=== PATIENT | male | born 1955 | race Caucasian/White ===

== ENCOUNTER 2016-11-22 20:00 | Observation (INO) | payer OTHER ==
[2016-11-22 20:30] LABS: COLOR YELLOW; LEUKOCYTE ESTERASE,URINE NEGATIVE (NEGATIVE); NITRITE,URINE NEGATIVE (NEGATIVE)
[2016-11-22] MEDS ORDERED: HYDROmorphONE/DILAUDID 1 MG/ML SYR IVP ONE ×2 (20:40→22:44)
[2016-11-22] MEDS ORDERED: NS 1,000 ML IV ONE (20:40)
[2016-11-22] MEDS ORDERED: ONDANSETRON 4 MG/2 ML VIAL IVP ONE (20:40)
[2016-11-22] MEDS ORDERED: KETOROLAC 30 MG/1 ML SDV IVP ONE (20:40)
[2016-11-22 20:44] LABS: BACTERIA TRACE /hpf (NONE SEEN); GRANULAR CASTS 0-1 /lpf (0-1); HYALINE CASTS 0-1 /lpf (0-1); MUCUS 2+ /lpf (NONE-1+); RBC,URINE 50-182 /hpf (0-3); WBC,URINE 0-1 /hpf (0-3)
--- NOTE | 2016-11-22 20:44 | EDPHY ---
H & P Stated Complaint: Pt. states constant left flank pain this afternoon, now with nausea Time Seen by Provider: 11/22/16 20:38 - Medical/Surgical History Hx Asthma: No Hx Chronic Respiratory Disease: No Hx Diabetes: No Hx Cardiac Disease: No Hx Renal Disease: No Hx Cirrhosis: No Hx Alcoholism: No Hx HIV/AIDS: No Hx Splenectomy or Spleen Trauma: No Other PMH: cholesterol. Rheumatoid Arthritis. Surg-appy - Social History Smoking Status: Heavy smoker Constitutional: Initial Vital Signs Temperature (C) 36.5 C 11/22/16 20:10 Heart Rate 72 11/22/16 20:10 Respiratory Rate 16 11/22/16 20:10 Blood Pressure 139/83 H 11/22/16 20:10 O2 Sat (%) 95 11/22/16 20:10 O2 Delivery Mode Nasal Cannula O2 (L/minute) 2 Allergies/Adverse Reactions: No Known Allergies Allergy (Verified 11/22/16 20:16) Home Medications: Medication Instructions Recorded Methotrexate 05/29/13 Atorvastatin Calcium 11/22/16 Cialis 11/22/16 Tamsulosin HCl [Flomax 0.4 MG (*)] 0.4 mg PO DAILY #10 cap 11/22/16 oxyCODONE IR [Oxycodone Ir (*)] 5 - 10 mg PO Q6 PRN #20 tab 11/22/16 Medical Decision Making - Diagnostics Imaging Results: Imaging Impressions Abdomen/Pelvis CT 11/22/16 20:41 Impression: 1. Moderate left hydronephrosis with significant perinephric fluid and dilated renal collecting systems secondary to left ureterolithiasis with a 5 x 6 mm obstructing calculus in the proximal left ureter. 2. Several additional calyceal calculi in the left kidney. Nonobstructing calyceal calculi in the right kidney. No right hydronephrosis. 3. Sigmoid diverticulosis without diverticulitis. 4. L4-L5 moderate central canal stenosis secondary to degenerative grade 1 retrolisthesis and central disk herniation. Attention: This CT examination is specifically designed to evaluate patients who are clinically suspected of having acute obstructive uropathy. This examination does not use radiographic contrast, and as such, provides only a limited evaluation of the abdomen, pelvis, and retroperitoneum. If there is further clinical suspicion for pathological conditions other than obstructive uropathy, a complete CT evaluation of the abdomen and pelvis utilizing intravenous, oral, and rectal contrast should be considered. Findings and recommendations discussed with emergency department physician, Erich Montero MD at 2127 hours on November 22, 2016. Final report concurs with initial preliminary interpretation. Imaging: Discussed imaging studies w/ call center rn Radiologist ED Course/Re-evaluation: CHIEF COMPLAINT: Left flank pain HISTORY OF PRESENT ILLNESS: 61-year-old gentleman with rheumatoid arthritis who presents with several hours of worsening left flank pain. He is nauseated without vomiting. He denies fevers or chills. He denies any urinary difficulties. He states he has never had any symptoms like this in the past. He denies any radiation of the pain around to his abdomen or to his groin at this time. He denies any mechanical type injury to his back. REVIEW OF SYSTEMS: A 10 point review of systems was performed and is negative with the exception of the elements mentioned in the history of present illness. PHYSICAL EXAM: HR, BP, O2 Sat, RR. Temp noted General Appearance: Alert, well hydrated, appropriate, and non-toxic appearing. Head: Atraumatic without scalp tenderness or obvious injury Eyes: Pupils equal, round, reactive to light and accommodation, EOMI, no trauma , no injection. Ears: Clear bilaterally, no perforation, normal landmarks Nose: Atraumatic, no rhinorrhea, clear. Throat: There is no erythema or exudates, no lesions, normal tonsils, mucus membranes moist. Neck: Supple, 2+ carotid upstroke, nontender, no lymphadenopathy. Respiratory: No retractions, no distress, no wheezes, and no accessory muscle use. Lungs are clear to auscultation bilaterally. Cardiovascular: Regular rate and rhythm, no murmurs, rubs, or gallops. Bilateral carotid, radial, dorsalis pedis, and posterior tibial pulses intact. Good capillary refill all extremities. Gastrointestinal: He has pain in the left CVA but I cannot elicit any worse pain by palpation. Abdomen is soft, nontender, non-distended, no masses, no rebound, no guarding, no peritoneal signs. Musculoskeletal: Normal active ROM of all extremities, atraumatic. Neurological: Alert, appropriate, and interactive. The patient has normal DTRs and non-focal cranial nerves, motor, sensory, and cerebellar exam. Skin: No rashes, good turgor, no nodules on palpation. Past medical history: Rheumatoid arthritis Past surgical history: Noncontributory Family history: Noncontributory Social history: , uses tobacco, does not abuse alcohol or drugs, employed DIAGNOSTICS/PROCEDURES/CRITICAL CARE TIME: Study: CT of the abdomen and pelvis without intravenous contrast Indication: Possible kidney stone Results: CT scan of the abdomen and pelvis was obtained. The results of the study are 5-6 mm proximal left kidney stone with significant hydroureter and hydronephrosis with some urine extravasation. The study was read by the radiologist, Dr. Goel. I viewed the images myself on the PACS system. DIFFERENTIAL DIAGNOSIS: The differential diagnosis for the patient's flank pain included but was not limited to musculoskeletal causes, kidney stone, pyelonephritis, shingles, diverticulitis, appendicitis, and aortic aneurysm. MEDICAL DECISION MAKING: This patient is nauseated and having significant pain. We established IV access. Urinalysis shows positive blood but no infection. 1 mg of Dilaudid, 30 mg of Toradol, 4 mg of Zofran intravenous fluids have been given. I will consider Flomax once I established a definitive diagnosis. CT is pending. 21:[address] Goel. CT shows 5-6 mm proximal left kidney stone with significant hydroureter and hydronephrosis with some urine extravasation. Plan to manage pain and reassess following medication administration. The patient has non-infected kidney stones. We offered the patient admission, but he and his state he would prefer to be discharged home rather than admitted at this point. His pain is currently managed well. He will be discharged with prescriptions for Flomax and Oxycodone IR, instructions to follow up with Dr. Montenegro, and has been given strict return precautions. He will return if the pain is uncontrollable or if he has any nausea, vomiting, fever, or chills. 10:42 p.m.: Just before discharge this patient had a significant increase in his flank pain. He now feels like the pain is moving down a little bit further toward his left abdomen and groin. He does not feel like he can control the pain at home. I have once again offered him admission and we will admit him to the [facility] facility to the hospitalist for pain control and consultation by Urology. I would prefer to transfer this patient by ambulance however, they refused to be transferred by ambulance because on a prior transfer they were stuck with a large ambulance pillow over 1200 dollars. The will drive him in private vehicle over the [facility]. - Data Points Laboratory Results: Laboratory Results 11/22/16 20:50 11/22/16 20:50 11/22/16 11/22/16 11/22/16 20:50 20:50 20:20 WBC 17.71 10^3/uL H 10^3/uL (3.80-9.50) RBC 4.45 10^6/uL 10^6/uL (4.40-6.38) Hgb 14.7 g/dL g/dL (13.7-17.5) Hct 41.7 % % (40.0-51.0) MCV 93.7 fL fL (81.5-99.8) MCH 33.0 pg pg (27.9-34.1) MCHC 35.3 g/dL g/dL (32.4-36.7) RDW 13.8 % % (11.5-15.2) Plt Count 303 10^3/uL 10^3/uL (150-400) MPV 10.3 fL fL (8.7-11.7) Neut % (Auto) Not Reported Lymph % (Auto) Not Reported [place] % (Auto) Not Reported Eos % (Auto) Not Reported Baso % (Auto) Not Reported Nucleat RBC Rel Count 0.0 % % (0.0-0.2) Absolute Neuts (auto) Not Reported Absolute Lymphs (auto) Not Reported Absolute Monos (auto) Not Reported Absolute Eos (auto) Not Reported Absolute Basos (auto) Not Reported Absolute Nucleated RBC 0.00 10^3/uL 10^3/uL (0-0.01) Immature Gran % Not Reported Seg Neutrophils % 80 % % Band Neutrophils % 4 % % Lymphocytes % 9 % % Monocytes % 6 % % Eosinophils % 1 % % Immature Gran # Not Reported Absolute Seg Neuts 14.2 K/MM3 H K/MM3 (1.8-7) Absolute Band Neuts 0.7 K/MM3 K/MM3 (0-0.7) Absolute Lymphocytes 1.6 K/mm3 K/mm3 (1.0-4.8) Absolute Monocytes 1.1 K/mm3 H K/mm3 (0-0.8) Absolute Eosinophils 0.2 K/mm3 K/mm3 (0-0.5) RBC/WBC/PLT Morphology NORMAL (NORMAL) Atypical Lymphocytes 1+ H Toxic Vacuolation PRESENT H Platelet Estimate ADEQUATE (ADEQ) Large Platelets PRESENT H Sodium 142 mEq/L mEq/L (134-144) Potassium 4.1 mEq/L mEq/L (3.5-5.2) Chloride 102 mEq/L mEq/L (97-110) Carbon Dioxide 26 mEq/l mEq/l (22-31) Anion Gap 14 mEq/L mEq/L (8-16) BUN 17 mg/dL mg/dL (7-23) Creatinine 1.3 mg/dL mg/dL (0.7-1.3) Estimated GFR 56 Glucose 93 mg/dL mg/dL (70-100) Calcium 9.6 mg/dL mg/dL (8.5-10.4) Total Bilirubin 1.0 mg/dL mg/dL (0.1-1.4) Conjugated Bilirubin 0.3 mg/dL mg/dL (0.0-0.5) Unconjugated Bilirubin 0.7 mg/dL mg/dL (0.0-1.1) AST 21 IU/L IU/L (17-59) ALT 33 IU/L IU/L (21-72) Alkaline Phosphatase 90 IU/L IU/L (38-126) Total Protein 6.9 g/dL g/dL (6.3-8.2) Albumin 3.6 g/dL g/dL (3.5-5.0) Lipase 197.0 IU/L IU/L (23-300) Urine Color YELLOW Urine Appearance HAZY Urine pH 7.0 (5.0-7.5) Ur Specific [place] 1.015 (1.002-1.030) Urine Protein NEGATIVE (NEGATIVE) Urine Ketones NEGATIVE (NEGATIVE) Urine Blood 3+ H (NEGATIVE) Urine Nitrate NEGATIVE (NEGATIVE) Urine Bilirubin NEGATIVE (NEGATIVE) Urine Urobilinogen 0.2 EU EU (0.2-1.0) Ur Leukocyte Esterase NEGATIVE (NEGATIVE) Urine RBC 50-182 /hpf H /hpf (0-3) Urine WBC 0-1 /hpf /hpf (0-3) Ur Epithelial Cells 1+ /lpf /lpf (NONE-1+) Urine Bacteria TRACE /hpf H /hpf (NONE SEEN) Hyaline Casts 0-1 /lpf /lpf (0-1) Granular Casts 0-1 /lpf /lpf (0-1) Urine Mucus 2+ /lpf H /lpf (NONE-1+) Urine Glucose NEGATIVE (NEGATIVE) Medications Given: Discontinued Medications Hydromorphone HCl (Dilaudid) 1 mg IVP EDNOW ONE Stop: 11/22/16 20:41 Last Admin: 11/22/16 21:11 Dose: 1 mg Sodium Chloride (Ns) 1,000 mls @ 0 mls/hr IV ONCE ONE PRN Reason: Wide Open Stop: 11/22/16 20:41 Last Admin: 11/22/16 21:03 Dose: 1,000 mls Ketorolac Tromethamine (Toradol) 30 mg IVP EDNOW ONE Stop: 11/22/16 20:41 Last Admin: 11/22/16 21:10 Dose: 30 mg Ondansetron HCl (Zofran) 4 mg IVP EDNOW ONE Stop: 11/22/16 20:41 Last Admin: 11/22/16 21:05 Dose: 4 mg Tamsulosin HCl (Flomax) 0.4 mg PO EDNOW ONE Stop: 11/22/16 21:21 Last Admin: 11/22/16 21:30 Dose: 0.4 mg Departure - Departure Disposition: [facility] Inpatient Acute Clinical Impression: Kidney stone Condition: Fair Instructions: Kidney Stones (ED) Additional Instructions: 1. Take Flomax as prescribed. 2. Take Oxycodone IR as prescribed for pain. 3. Follow up with Dr. Montenegro for continued management of your kidney stones. Call Thursday for an appointment. 4. Return to the ED for pain uncontrolled by your medications, nausea, vomiting , fever, chills, or other worsening of condition. Referrals: Fareed Giang DO [Primary Care Provider] - As per Instructions Alan Montenegro MD [Medical Doctor] - As per Instructions Prescriptions: oxyCODONE IR [Oxycodone Ir (*)] 5 - 10 mg PO Q6 PRN #20 tab PRN Reason: Pain, Severe Tamsulosin HCl [Flomax 0.4 MG (*)] 0.4 mg PO DAILY #10 cap
[2016-11-22 20:58] LABS: ADD DIFF? YES; ADD MORPH? NO; ADD SCAN? NO; ATYPICAL LYMPHOCYTE FLAG 10 (0-99); FRAGMENT RBC FLAG 0 (0-99); HEMATOCRIT 41.7 % (40.0-51.0); HEMOGLOBIN 14.7 g/dL (13.7-17.5); LEFT SHIFT FLG 10 (0-99); LIPEMIA HEMOLYSIS FLAG 90 (0-99); MEAN CELL HEMOGLOBIN CONCENTR. 35.3 g/dL (32.4-36.7); MEAN CELL VOLUME 93.7 fL (81.5-99.8); MEAN PLATELET VOLUME 10.3 fL (8.7-11.7); PLATELET CLUMPS FLAG 0 (0-99); PLATELET COUNT 303 10^3/uL (150-400); RED BLOOD CELL COUNT 4.45 10^6/uL (4.40-6.38); RED CELL DISTRIBUTION WIDTH 13.8 % (11.5-15.2)
[2016-11-22 21:10] LABS: ALBUMIN 3.6 g/dL (3.5-5.0); BILIRUBIN-CONJUGATED 0.3 mg/dL (0.0-0.5); BILIRUBIN-UNCONJUGATED 0.7 mg/dL (0.0-1.1); CALCIUM 9.6 mg/dL (8.5-10.4); CREATININE 1.3 mg/dL (0.7-1.3); POTASSIUM 4.1 mEq/L (3.5-5.2); TOTAL PROTEIN 6.9 g/dL (6.3-8.2)
[2016-11-22] MEDS ORDERED: TAMSULOSIN HCL 0.4 MG CAP PO ONE (21:20)
[2016-11-22 21:25] LABS: LARGE PLATELETS PRESENT; PLATELET ESTIMATE ADEQUATE (ADEQ); TOXIC VACUOLIZATION PRESENT
[2016-11-22] MEDS ORDERED: OXYCODONE/APAP 5/325MG PREPACK#4 BTL TAKEHOME ONE (22:05)
[2016-11-23] MEDS ORDERED: ACETAMINOPHEN 500 MG TAB PO PRN (00:32)
[2016-11-23] MEDS ORDERED: ONDANSETRON DISINTEGRATING 4 MG TAB PO PRN (00:32)
[2016-11-23] MEDS ORDERED: ONDANSETRON 4 MG/2 ML VIAL IVP PRN (00:32)
[2016-11-23] MEDS ORDERED: HYDROmorphONE/DILAUDID 1 MG/ML SYR IVP PRN (00:32)
[2016-11-23] MEDS: NS 1,000 ML IV SCH ×2 (00:40→09:48)
[2016-11-23] MEDS ORDERED: ALBUTEROL 3 ML DEYVIAL IH PRN (03:51)
--- NOTE | 2016-11-23 03:55 | PDGENHP ---
History and Physical - Chief Complaint L flank pain - History of Present Illness Patient is a 61-year-old male with a history of rheumatoid arthritis, active tobacco use presents to the ED with complaint of left flank pain. Patient states symptoms started suddenly this afternoon with a dull achy pain in his left mid back radiating to his flank. Over the following hours, pain intensified became associated with nausea and lack of appetite. By dinnertime he was significantly uncomfortable, so the his brought him to the urgent care for further evaluation. He denies any route associated fevers, chills, vomiting, dysuria, hematuria. He has never experienced this type of pain before. He does follow with a urologist for BPH, which has been well controlled recently. On arrival to the [facility], patient was afebrile hemodynamically stable. Labs revealed leukocytosis, normal BMP. UA showed micro hematuria without evidence of infection. CT of the abdomen and pelvis revealed 5x6mm L ureter stone with moderate associated hydronephrosis. He was given symptom control in the [facility] and was preparing for DC home, however, pain recurred and intensified, so he was transferred to [facility] for admission. History Information - Allergies/Home Medication List Allergies/Adverse Reactions: No Known Allergies Allergy (Verified 11/22/16 20:16) Home Medications: Methotrexate 05/29/13 [Last Taken Unknown] Atorvastatin Calcium 11/22/16 [Last Taken Unknown] Cialis 11/22/16 [Last Taken Unknown] I have personally reviewed and updated: family history, medical history, social history, surgical history - Past Medical History Additional medical history: Rheumatoid arthritis, well controlled on MTX. 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 Review of Systems ROS: 10pt was reviewed & negative except for what was stated in HPI & below Physical Exam Temp Pulse Resp BP Pulse Ox 37.2 C 85 16 138/72 H 92 11/23/16 00:21 11/23/16 00:21 11/23/16 00:21 11/23/16 00:21 11/23/16 00:21 O2 (L/minute) 1 Constitutional: no apparent distress, appears nourished, not in pain Eyes: PERRL, anicteric sclera, EOMI Ears, Nose, Mouth, Throat: moist mucous membranes, hearing normal, ears appear normal, no oral mucosal ulcers Cardiovascular: regular rate and rhythym, no murmur, rub, or gallop, pulses symmetric bilaterally, No JVD, No edema Peripheral Pulses: 2+: dorsalis-pedis (R), dorsalis-pedis (L) Respiratory: no respiratory distress, no rales or rhonchi, clear to auscultation Gastrointestinal: normoactive bowel sounds, soft, non-tender abdomen, no palpable masses Genitourinary: no bladder fullness, no bladder tenderness, other (no CVA tenderness) Skin: warm, normal color, no rashes or abrasions, no fluctuance, no induration, No mottled Musculoskeletal: full muscle strength, no muscle tenderness, normal joint ROM, no joint effusions Neurologic: AAOx3, sensation intact bilaterally, CN II-XII Intact, No weakness, No numbness Psychiatric: interacting appropriately, not anxious, not encephalopathic, thought process linear Lab Data & Imaging Review 11/22/16 20:50 11/22/16 20:50 WBC 17.71 10^3/uL (3.80-9.50) H 11/22/16 20:50 RBC 4.45 10^6/uL (4.40-6.38) 11/22/16 20:50 Hgb 14.7 g/dL (13.7-17.5) 11/22/16 20:50 Hct 41.7 % (40.0-51.0) 11/22/16 20:50 MCV 93.7 fL (81.5-99.8) 11/22/16 20:50 MCH 33.0 pg (27.9-34.1) 11/22/16 20:50 MCHC 35.3 g/dL (32.4-36.7) 11/22/16 20:50 RDW 13.8 % (11.5-15.2) 11/22/16 20:50 Plt Count 303 10^3/uL (150-400) 11/22/16 20:50 MPV 10.3 fL (8.7-11.7) 11/22/16 20:50 Neut % (Auto) Not Reported 11/22/16 20:50 Lymph % (Auto) Not Reported 11/22/16 20:50 [place] % (Auto) Not Reported 11/22/16 20:50 Eos % (Auto) Not Reported 11/22/16 20:50 Baso % (Auto) Not Reported 11/22/16 20:50 Nucleat RBC Rel Count 0.0 % (0.0-0.2) 11/22/16 20:50 Absolute Neuts (auto) Not Reported 11/22/16 20:50 Absolute Lymphs (auto) Not Reported 11/22/16 20:50 Absolute Monos (auto) Not Reported 11/22/16 20:50 Absolute Eos (auto) Not Reported 11/22/16 20:50 Absolute Basos (auto) Not Reported 11/22/16 20:50 Absolute Nucleated RBC 0.00 10^3/uL (0-0.01) 11/22/16 20:50 Immature Gran % Not Reported 11/22/16 20:50 Seg Neutrophils % 80 % 11/22/16 20:50 Band Neutrophils % 4 % 11/22/16 20:50 Lymphocytes % 9 % 11/22/16 20:50 Monocytes % 6 % 11/22/16 20:50 Eosinophils % 1 % 11/22/16 20:50 Immature Gran # Not Reported 11/22/16 20:50 Absolute Seg Neuts 14.2 K/MM3 (1.8-7) H 11/22/16 20:50 Absolute Band Neuts 0.7 K/MM3 (0-0.7) 11/22/16 20:50 Absolute Lymphocytes 1.6 K/mm3 (1.0-4.8) 11/22/16 20:50 Absolute Monocytes 1.1 K/mm3 (0-0.8) H 11/22/16 20:50 Absolute Eosinophils 0.2 K/mm3 (0-0.5) 11/22/16 20:50 RBC/WBC/PLT Morphology NORMAL (NORMAL) 11/22/16 20:50 Atypical Lymphocytes 1+ H 11/22/16 20:50 Toxic Vacuolation PRESENT H 11/22/16 20:50 Platelet Estimate ADEQUATE (ADEQ) 11/22/16 20:50 Large Platelets PRESENT H 11/22/16 20:50 Sodium 142 mEq/L (134-144) 11/22/16 20:50 Potassium 4.1 mEq/L (3.5-5.2) 11/22/16 20:50 Chloride 102 mEq/L (97-110) 11/22/16 20:50 Carbon Dioxide 26 mEq/l (22-31) 11/22/16 20:50 Anion Gap 14 mEq/L (8-16) 11/22/16 20:50 BUN 17 mg/dL (7-23) 11/22/16 20:50 Creatinine 1.3 mg/dL (0.7-1.3) 11/22/16 20:50 Estimated GFR 56 11/22/16 20:50 Glucose 93 mg/dL (70-100) 11/22/16 20:50 Calcium 9.6 mg/dL (8.5-10.4) 11/22/16 20:50 Total Bilirubin 1.0 mg/dL (0.1-1.4) 11/22/16 20:50 Conjugated Bilirubin 0.3 mg/dL (0.0-0.5) 11/22/16 20:50 Unconjugated Bilirubin 0.7 mg/dL (0.0-1.1) 11/22/16 20:50 AST 21 IU/L (17-59) 11/22/16 20:50 ALT 33 IU/L (21-72) 11/22/16 20:50 Alkaline Phosphatase 90 IU/L (38-126) 11/22/16 20:50 Total Protein 6.9 g/dL (6.3-8.2) 11/22/16 20:50 Albumin 3.6 g/dL (3.5-5.0) 11/22/16 20:50 Lipase 197.0 IU/L (23-300) 11/22/16 20:50 Urine Color YELLOW 11/22/16 20:20 Urine Appearance HAZY 11/22/16 20:20 Urine pH 7.0 (5.0-7.5) 11/22/16 20:20 Ur Specific [place] 1.015 (1.002-1.030) 11/22/16 20:20 Urine Protein NEGATIVE (NEGATIVE) 11/22/16 20:20 Urine Ketones NEGATIVE (NEGATIVE) 11/22/16 20:20 Urine Blood 3+ (NEGATIVE) H 11/22/16 20:20 Urine Nitrate NEGATIVE (NEGATIVE) 11/22/16 20:20 Urine Bilirubin NEGATIVE (NEGATIVE) 11/22/16 20:20 Urine Urobilinogen 0.2 EU (0.2-1.0) 11/22/16 20:20 Ur Leukocyte Esterase NEGATIVE (NEGATIVE) 11/22/16 20:20 Urine RBC 50-182 /hpf (0-3) H 11/22/16 20:20 Urine WBC 0-1 /hpf (0-3) 11/22/16 20:20 Ur Epithelial Cells 1+ /lpf (NONE-1+) 11/22/16 20:20 Urine Bacteria TRACE /hpf (NONE SEEN) H 11/22/16 20:20 Hyaline Casts 0-1 /lpf (0-1) 11/22/16 20:20 Granular Casts 0-1 /lpf (0-1) 11/22/16 20:20 Urine Mucus 2+ /lpf (NONE-1+) H 11/22/16 20:20 Urine Glucose NEGATIVE (NEGATIVE) 11/22/16 20:20 Visualized and Interpreted imaging results: Yes Interpretation: CT abd/pelvis: L ureter stone 5 x 6 mm with moderate L hydronephrosis Assessment & Plan Assessment: Patient is a 61 year old male with well controlled RA on MTX, active tobacco use who presented to the [facility] with L flank pain since the afternoon. [facility] evaluation reveals ureterolithiasis of the L ureter with moderate associated obstructive hydronephrosis. No evidence of concurrent pyelonephritis. Plan: # L ureterolithiasis L flank pain likely related to L ureter stone of 6x[address] does show evidence of moderate hydronephrosis due to obstruction, however, there is no evidence of associated infection. Will continue aggressive IVF hydration, pain control as needed and flomax. Will also contact Urology. # leukocytosis Suspect this is reactive, as there is no obvious source of infection at this time (UA without LE, nitrites or wbcs). Will follow, if evidence of urinary infection develops will culture and initiate antibiotics. At this time, patient does not meet SIRS/sepsis criteria. # active tobacco use Advised patient of benefits of smoking cessation and offered nicotine replacement while inpatient. # RA Stable, resume home meds. # BPH Continue home tadalafil and also initiate tamsulosin. # dispo: admit to observation status # gen: regular diet DVT ppx: low risk Full code
[2016-11-23 05:12] LABS: % IMMATURE GRANULYOCYTES 0.6 % (0.0-1.1); ABSOLUTE IMMATURE GRANULOCYTES 0.11 10^3/uL (0.00-0.10); ADD DIFF? NO; ADD MORPH? NO; ADD SCAN? NO; ATYPICAL LYMPHOCYTE FLAG 10 (0-99); FRAGMENT RBC FLAG 0 (0-99); HEMATOCRIT 40.9 % (40.0-51.0); HEMOGLOBIN 13.9 g/dL (13.7-17.5); LEFT SHIFT FLG 10 (0-99); LIPEMIA HEMOLYSIS FLAG 90 (0-99); MEAN CELL HEMOGLOBIN 32.7 pg (27.9-34.1); MEAN CELL VOLUME 96.2 fL (81.5-99.8); MEAN PLATELET VOLUME 10.7 fL (8.7-11.7); PLATELET CLUMPS FLAG 0 (0-99); PLATELET COUNT 260 10^3/uL (150-400); RED BLOOD CELL COUNT 4.25 10^6/uL (4.40-6.38); RED CELL DISTRIBUTION WIDTH 14.1 % (11.5-15.2)
[2016-11-23 05:29] LABS: ANION GAP 7 mEq/L (8-16); CALCIUM 8.8 mg/dL (8.5-10.4); CARBON DIOXIDE 23 mEq/l (22-31); CHLORIDE 111 mEq/L (97-110); CREATININE 1.4 mg/dL (0.7-1.3); GLOMERULAR FILTRATION RATE 52; GLUCOSE 90 mg/dL (70-100); POTASSIUM 4.5 mEq/L (3.5-5.2); SODIUM 141 mEq/L (134-144)
[2016-11-23] MEDS: KETOROLAC 30 MG/1 ML SDV IVP PRN ×2 (08:08→14:58)
[2016-11-23] MEDS: TAMSULOSIN HCL 0.4 MG CAP PO SCH (09:47)
--- NOTE | 2016-11-23 14:37 | HOSPPROG ---
Hospitalist Progress Note Assessment/Plan: 61M PMH RA on MTX, active tobacco abuse, starting on day of admission 11/22. Noted a L midback to flank discomfort. Found to have 5x6mm L prox ureteral stone with moderate hydronephrosis. #. L ureterolitiasis: L flankl pain moderate associated hydronephrosis due to obstrcution no e/o infection Dr. Katalina Sorensen has been called and will see patient/appreciate assistance #. leukocytosis: U/A without LE/nitrites or WBCs #. active tobacco abuse: nicotine patch provided #. RA: home MTX continued #. BPH: tamsulosin started here #. dispo: transitioned to inpt due to need for urologic procedure Subjective: Reports colicky pain. No pain currently. Objective: Vital Signs Temp Pulse Resp BP Pulse Ox 98.8 F 73 16 128/78 H 94 11/23/16 08:00 11/23/16 08:00 11/23/16 08:00 11/23/16 08:00 11/23/16 08:00 Laboratory Results 11/23/16 04:10 11/23/16 04:10 11/22/16 11/23/16 11/24/16 05:59 05:59 05:59 Intake Total 1000 Balance 1000 ICD10 Worksheet Patient Problems: Problems Problem Status Onset Kidney stone Acute
[2016-11-23] MEDS: oxyCODONE IR 5 MG TAB PO PRN (16:28)
[2016-11-23] MEDS: NICOTINE 21 MG/24 HR PATCH TD SCH (16:32)
[2016-11-23] MEDS ORDERED: CEFAZOLIN 2 GM/DEXTROSE/100 ML BAG IV ONE (16:55)
[2016-11-23] MEDS ORDERED: LIDOCAINE 2% JELLY 20 ML (UROJECT) ONE (17:01)
[2016-11-23] MEDS ORDERED: IOPAMIDOL (ISOVUE-370) 150 ML BTL IV ONE (17:02)
[2016-11-23] MEDS ORDERED: fentaNYL 100 MCG/2 ML INJ ONE ×2 (17:03→17:35)
[2016-11-23] MEDS ORDERED: PROPOFOL 200 MG/20 ML VIAL ONE (17:04)
[2016-11-23] MEDS ORDERED: METOCLOPRAMIDE 10 MG/2 ML VIAL ONE (17:04)
[2016-11-23] MEDS ORDERED: LIDOCAINE 2% JELLY 5 ML TUBE ONE (17:04)
[2016-11-23] MEDS ORDERED: ONDANSETRON 4 MG/2 ML VIAL ONE (17:05)
[2016-11-23] MEDS ORDERED: MIDAZOLAM 2 MG/2 ML VIAL ONE (17:15)
--- NOTE | 2016-11-23 18:19 | SUROPNOTE ---
[facility] Operative Report - Surgery [id number] Left stent and stone manipulation
--- NOTE | 2016-11-23 18:23 | PDCONSULT ---
Senior Underwriting Assistant Note: [id number]
--- NOTE | 2016-11-23 18:42 | GOP ---
[f rep st] OPERATIVE REPORT DATE OF OPERATION: 11/23/2016 SURGEON: Jose Alejandro Sorensen MD ANESTHESIA: General laryngeal mask. PREOPERATIVE DIAGNOSIS: 6 mm proximal left ureteral calculus. POSTOPERATIVE DIAGNOSIS: 6 mm proximal left ureteral calculus. PROCEDURE PERFORMED: Cystoscopy, left ureteral stone manipulation, and left ureteral stent insertion. FINDINGS: ESTIMATED BLOOD LOSS: Minimal. COMPLICATIONS: None. DRAINS: Left-sided 6-English stent. TECHNIQUE: The patient was taken to the operating room. General anesthesia was induced. The patient was placed in the dorsal lithotomy position, prepped and draped in sterile fashion. Antibiotics were given preoperatively. The 22-English cystoscope with the 30-degree lens was inserted through the patient's urethra into the patient's bladder. No urothelial defects, masses, or stones were noted. The fluoroscopy image was examined and revealed that the stone had not progressed at all since a CT scan the night before. The stone was very proximal and it was thought at this point that it would be best to try to manipulate the stone back into the renal pelvis. A sensor wire was inserted up to the level of the stone and around the stone without difficulty. An open-ended stent was placed up to the level of the stone. The stent was withdrawn. Saline was used to inject behind the stone. The stone was seen to float into the renal pelvis. A retrograde pyelogram was then performed to confirm the above findings. The patient did have somewhat of a small renal pelvis. Sensor wire was inserted again through the same open-ended stent and then, a 6- English stent was loaded onto the wire and passed into the patient's renal pelvis by fluoroscopy and seen to curl in the bladder by direct vision. The patient's bladder was drained. He was returned to the supine position and at the time of this dictation, was being prepared for extubation. /[id number]/MODL MTDD
--- NOTE | 2016-11-23 19:27 | GCON ---
[f rep st] CONSULTATION DATE OF CONSULTATION: 11/23/2016 REFERRING PHYSICIAN: Lita Murray MD REASON FOR CONSULTATION: Left proximal stone. HISTORY OF PRESENT ILLNESS: The patient is a 61-year-old male who has a history of elevated PSA, del castillo s been biopsied by my partner and Dr. Alan Montenegro. The patient does not have a history of nephroli thiasis. He had a sudden onset of left abdominal pain, presented to the emergency room. A CT scan was performed which I personally reviewed. This revealed a 6 x 5 x 5 mm proximal left ureteral ston e. The patient has had recurrent pain while in the hospital. Options were discussed and surgical i ntervention was elevated. Informed consent was obtained. PAST MEDICAL HISTORY: Rheumatoid arthritis. HOME MEDICATIONS: Methotrexate and Cialis. ALLERGIES: None. PAST SURGICAL HISTORY: Appendectomy. FAMILY HISTORY: Diabetes, hypertension. SOCIAL HISTORY: A pack a day smoker x45 years. Alcohol: Occasional. 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 He lives with his . REVIEW OF SYSTEMS: 10 point review of systems was negative except as noted below. PHYSICAL EXAMINATION: VITAL SIGNS: Temperature 37.2, pulse 85, respirations 16, blood pressure 138 /72, oxygen 92%. GENERAL: Alert and oriented. Normal mood and affect. NECK: Supple. RESPIRATOR Y: Effort is unlabored. ABDOMEN: He has mild left flank tenderness. : He has a normal male ph allus and meatus, a normal scrotum. EXTREMITIES: Nontender. LABORATORY STUDIES: White count is 17.7. Labs otherwise within normal limits. CT scan reviewed as above. ASSESSMENT: Left proximal stone. PLAN: Cystoscopy, ureteroscopy, laser ablation of the stone, stent insertion. The patient understa nds the possibility of not finding the stone or not being able to remove the stone. /[id number]/MODL
[2016-11-23] MEDS ORDERED: METHOTREXATE 2.5 MG TAB PO SCH (21:00)
[2016-11-24 05:12] LABS: % IMMATURE GRANULYOCYTES 0.7 % (0.0-1.1); ABSOLUTE IMMATURE GRANULOCYTES 0.12 10^3/uL (0.00-0.10); ADD DIFF? NO; ADD MORPH? NO; ADD SCAN? NO; ATYPICAL LYMPHOCYTE FLAG 0 (0-99); FRAGMENT RBC FLAG 40 (0-99); HEMATOCRIT 38.3 % (40.0-51.0); LEFT SHIFT FLG 0 (0-99); LIPEMIA HEMOLYSIS FLAG 90 (0-99); MEAN CELL HEMOGLOBIN 32.4 pg (27.9-34.1); MEAN CELL HEMOGLOBIN CONCENTR. 33.9 g/dL (32.4-36.7); MEAN CELL VOLUME 95.5 fL (81.5-99.8); MEAN PLATELET VOLUME 10.8 fL (8.7-11.7); PLATELET CLUMPS FLAG 30 (0-99); PLATELET COUNT 274 10^3/uL (150-400); RED BLOOD CELL COUNT 4.01 10^6/uL (4.40-6.38); RED CELL DISTRIBUTION WIDTH 13.9 % (11.5-15.2)
[2016-11-24 05:17] LABS: ANION GAP 9 mEq/L (8-16); CALCIUM 8.4 mg/dL (8.5-10.4); CARBON DIOXIDE 21 mEq/l (22-31); CHLORIDE 111 mEq/L (97-110); CREATININE 1.3 mg/dL (0.7-1.3); GLOMERULAR FILTRATION RATE 56; GLUCOSE 97 mg/dL (70-100); SODIUM 141 mEq/L (134-144)
--- NOTE | 2016-11-24 08:21 | HOSPPROG ---
Hospitalist Progress Note Assessment/Plan: 61M PMH RA on MTX, active tobacco abuse, starting on day of admission 11/22. Noted a L midback to flank discomfort. Found to have 5x6mm L prox ureteral stone with moderate hydronephrosis. today is my 1st encounter with the patient. Chart reviewed. #. L ureterolithiases: L flank pain moderate associated hydronephrosis due to obstruction Status post cystoscopy, ureteroscopy, laser ablation of the stone with stent placement #. leukocytosis: will get a repeat ua #. active tobacco abuse: nicotine patch provided #. RA: home MTX continued #. BPH: tamsulosin started here #. dispo: dc later today after ultrasound and abd xray is performed. Subjective: José Manuel is c/o ongoing left sided flank pain Objective: Vital Signs Temp Pulse Resp BP Pulse Ox 37.4 C 80 16 115/59 L 89 L 11/24/16 00:00 11/24/16 00:00 11/24/16 00:00 11/24/16 00:00 11/24/16 00:00 Laboratory Results 11/24/16 04:36 11/24/16 04:36 11/23/16 11/24/16 11/25/16 05:59 05:59 05:59 Intake Total 1000 830 Output Total 250 Balance 1000 580 - Physical Exam Constitutional: uncomfortable Eyes: anicteric sclera Ears, Nose, Mouth, Throat: hearing normal Cardiovascular: regular rate and rhythym Respiratory: no respiratory distress Gastrointestinal: normoactive bowel sounds Genitourinary: other (left sided flank pain) Skin: warm Musculoskeletal: full muscle strength, no muscle tenderness Neurologic: AAOx3 Psychiatric: interacting appropriately, not anxious ICD10 Worksheet Patient Problems: Problems Problem Status Onset Kidney stone Acute
[2016-11-24] MEDS: oxyCODONE IR 5 MG TAB PO PRN (08:25)
[2016-11-24] MEDS: TAMSULOSIN HCL 0.4 MG CAP PO SCH (08:25)
[2016-11-24 09:14] VITALS: BP 147/81; PULSE 89; RESP 20; TEMP 98.6; O2SAT 96
[2016-11-24] MEDS ORDERED: IBUPROFEN 200 MG TAB PO PRN (09:40)
[2016-11-24 12:25] LABS: COLOR YELLOW; LEUKOCYTE ESTERASE,URINE TRACE (NEGATIVE); NITRITE,URINE NEGATIVE (NEGATIVE)
[2016-11-24 12:27] LABS: MUCUS TRACE /lpf (NONE-1+); RBC,URINE 50-182 /hpf (0-3); WBC,URINE 15-25 /hpf (0-3)
[2016-11-24] MEDS: NICOTINE 21 MG/24 HR PATCH TD SCH (12:36)
--- NOTE | 2016-11-25 03:01 | GDS ---
[f rep st] DISCHARGE SUMMARY DISCHARGE DIAGNOSES: 1. Left nephrolithiasis with hydronephrosis due to obstruction. 2. Leukocytosis. 3. Active tobacco use. 4. Rheumatoid arthritis. 5. Benign prostatic hyperplasia. CONSULTATIONS DURING HIS STAY: Dr. Jose Alejandro Sorensen. BRIEF HISTORY: The patient is a 61-year-old male with history of RA, active tobacco use, who presented to the emergency room with complaints of left flank pain. It started suddenly. He had a dull, achy pain in his left mid back area. A CT of the abdomen and pelvis revealed a 5 x 6 mm, left ureteral stone with moderate associated hydronephrosis. His symptoms became significant that he was admitted for further care. He was seen and evaluated by Dr. Jose Alejandro Sorensen. On November 23 he had a cystoscopy, left ureteral stone manipulation, and left ureteral stent insertion. He tolerated the procedure overall well, but was continuing to have ongoing left flank pain. One-view abdominal x-ray was performed today which showed bilateral nephrolithiasis, with internal ureteral stent present on the left. The proximal aspect of the stent is coiled within the left renal pelvis. In addition, an abdominal-pelvis ultrasound was performed to evaluate the left flank pain. It showed no residual left hydronephrosis. Bilateral nephrolithiasis was not detected on ultrasound. HOSPITAL COURSE FOR PROBLEM: 1. Left ureteral nephrolithiasis. He has a stent in place. He will follow up with Dr. Sorensen tomorrow. 2. Leukocytosis. His repeat urinalysis shows some white blood cells, but he has no signs or symptoms. Will have him follow up with his primary care provider and get repeat CBC at the end of this week. 3. Active tobacco abuse. He was provided nicotine patch. Cessation was recommended. 4. RA. Home medications have been resumed. 5. BPH. He has been started on Flomax here. PENDING LABORATORIES: Urine culture is pending. CONDITION AT DISCHARGE: Stable. Blood pressure is 147/81, heart rate is 89, respiratory rate of 20, O2 saturation on room air 96%, temperature is 37 degrees Celsius. MEDICATIONS AT DISCHARGE: Please see the EMR. DISCHARGE INSTRUCTIONS: 1. To follow up with Dr. Sorensen tomorrow. 2. It will be expected that he has some left flank pain. 3. If he develops fever, chills, worsening flank pain, or is unable to void, to return to the ER. /[id number]/MODL MTDD
== END 2016-11-24 15:28 | disposition home or self-care (01) ==
LOC: CED 20:00 → CEDHOLD 22:45 → F3E 11-23
PROVIDERS: ADMIT Internal Medicine; ATTEND Internal Medicine
PROC: 0T9780Z Drainage of Left Ureter with Drainage Device, Via Natural or Artificial Opening Endoscopic (ICD-10-PCS; principal; 2016-11-22)
DX: N13.2 Hydronephrosis with renal and ureteral calculous obstruction (principal); M06.9 Rheumatoid arthritis, unspecified; F17.210 Nicotine dependence, cigarettes, uncomplicated; N40.0 Benign prostatic hyperplasia without lower urinary tract symptoms
CPT/HCPCS: 52332; 74000; 74176; 76001; 76770; C1758; C1769; 80048-PO; 80076-PO; 81003-PO; 81015-PO; 83690-PO; 85025-PO; C2625; J0690; J1170; J1885; J2250; J2405; J2704; J2765; J3010; Q9967

== ENCOUNTER → 2018-02-24 | Outpatient (CLI) | payer OTHER | DX: N20.0 Calculus of kidney (principal) ==

== ENCOUNTER 2018-06-29 22:11 | Emergency (ER) | payer OTHER ==
[2018-06-29 22:21] VITALS: BP 135/78
[2018-06-29] MEDS ORDERED: ACETAMINOPHEN 500 MG TAB PO ONE (22:31)
--- NOTE | 2018-06-29 22:31 | EDPHY ---
H & P Stated Complaint: General malase x3 days, fever. Time Seen by Provider: 06/29/18 22:20 HPI/ROS: CHIEF COMPLAINT: Fever, body aches, sinus congestion and dry cough HISTORY OF PRESENT ILLNESS: The patient is a 63-year-old man who comes to the emergency department complaining of a fever up to 103 at home as well as sinus congestion, dry cough and body aches. His symptoms began 3 days ago. No sore throat. No chest pain. No dyspnea. Severity: Moderate Modifying factors: Moderate improvement with ibuprofen taken earlier today REVIEW OF SYSTEMS: Constitutional: See HPI EENTM: See HPI Respiratory: See HPI Cardiac: denies: chest pain, irregular heart rate, lightheadedness, palpitations Gastrointestinal/Abdominal: denies: abdominal pain, diarrhea, nausea, vomiting, blood streaked stools Genitourinary: denies: dysuria, frequency, hematuria, pain Musculoskeletal: See HPI Skin: denies: lesions, rash, jaundice, bruising Neurological: denies: headache, numbness, paresthesia, tingling, dizziness, weakness Hematologic/Lymphatic: denies: blood clots, easy bleeding, easy bruising Immunologic/allergic: denies: HIV/AIDS, transplant 10 systems reviewed and negative except as noted EXAM: GENERAL: Well-appearing, well-nourished and in no acute distress. HEAD: Atraumatic, normocephalic. EYES: Pupils equal round and reactive to light, extraocular movements intact, sclera anicteric, conjunctiva are normal. ENT: TMs normal, nares congested, oropharynx clear without exudates. Moist mucous membranes. NECK: Normal range of motion, supple without lymphadenopathy or JVD. LUNGS: Breath sounds clear to auscultation bilaterally and equal. No wheezes rales or rhonchi. HEART: Slightly tachycardic, Regular rate and rhythm without murmurs, rubs or gallops. ABDOMEN: Soft, nontender, normoactive bowel sounds. No guarding, no rebound. No masses appreciated. BACK: No CVA tenderness, no spinal tenderness, step-offs or deformities EXTREMITIES: Normal range of motion, no pitting or edema. No clubbing or cyanosis. NEUROLOGICAL: Cranial nerves II through XII grossly intact. Normal speech, normal gait. 5/5 strength, normal movement in all extremities, normal sensation , normal reflexes PSYCH: Normal mood, normal affect. SKIN: Warm, dry, normal turgor, no visible rashes or lesions. Source: Patient Exam Limitations: No limitations - Personal History Current Tetanus/Diphtheria Vaccine: Unsure Current Tetanus Diphtheria and Acellular Pertussis (TDAP): Unsure - Medical/Surgical History Hx Asthma: No Hx Chronic Respiratory Disease: No Hx Diabetes: No Hx Cardiac Disease: No Hx Renal Disease: No Hx Cirrhosis: No Hx Alcoholism: No Hx HIV/AIDS: No Hx Splenectomy or Spleen Trauma: No Other PMH: cholesterol. Rheumatoid Arthritis. Surg-appy. Kidney Stones - Family History Significant Family History: No pertinent family hx - Social History Smoking Status: Heavy smoker Alcohol Use: Sober Drug Use: None Constitutional: Initial Vital Signs Temperature (C) 38.4 C H 06/29/18 22:19 Heart Rate 116 H 06/29/18 22:19 Respiratory Rate 16 06/29/18 22:19 Blood Pressure 135/78 H 06/29/18 22:19 O2 Sat (%) 92 06/29/18 22:19 O2 Delivery Mode Room Air Allergies/Adverse Reactions: No Known Allergies Allergy (Verified 11/22/16 20:16) Home Medications: Medication Instructions Recorded Methotrexate Sodium [Rheumatrex] 17.5 mg PO MORALES@2100 05/29/13 Atorvastatin Calcium [Lipitor 10 10 mg PO DAILY 11/22/16 mg (*)] Multivitamins [Multivitamin (*)] 1 each PO DAILY 11/23/16 Medical Decision Making ED Course/Re-evaluation: 11:00 p.m. The patient's flu test is negative. He is hydrating and has received Tylenol. He is tolerating p. O.. His heart rate has normalized in the room. His temperature is also improving. He is well appearing. We discussed hydration at home as well as antipyretics and rest. We discussed indications for returning. He declined prescriptions for cough medicine and nausea medicine. Differential Diagnosis: Partial list of the Differential diagnosis considered include but were not limited to; influenza, viral syndrome, strep throat and although unlikely based on the history and physical exam, I also considered pneumonia, acute coronary disease, arrhythmia. I discussed these differential diagnoses and the plan with the patient as well as the usual and expected course. The patient understands that the diagnosis is provisional and that in medicine we are not always correct and that further workup is often warranted. Usual and customary warnings were given. All of the patient's questions were answered. The patient was instructed to return to the emergency department should the symptoms at all worsen or return, otherwise to followup with the physician as we discussed. - Data Points Medications Given: Discontinued Medications Acetaminophen (Tylenol) 1,000 mg PO EDNOW ONE Stop: 06/29/18 22:32 Last Admin: 06/29/18 22:45 Dose: 1,000 mg Point of Care Test Results: Influenza PCR Flu Nasal Swab Collection Date 06/29/18 Flu Nasal Swab Collection Time 20:36 Influenza A Result Not Detected Influenza B Result Not Detected Departure - Departure Disposition: Home, Routine, Self-Care Clinical Impression: Viral syndrome Fever Qualifiers: Fever type: unspecified Qualified Code(s): R50.9 - Fever, unspecified Condition: Fair Instructions: Fever in Adults (ED), Viral Syndrome (ED) Referrals: Elda Nava MD [Medical Doctor] - 2-3 days, if not improved
== END 2018-06-29 23:04 | disposition home or self-care (01) ==
LOC: CED 22:11
DX: B34.9 Viral infection, unspecified (principal); R50.9 Fever, unspecified; F17.200 Nicotine dependence, unspecified, uncomplicated